=== PATIENT | male | born 1995 | race Caucasian/White ===

== ENCOUNTER 2019-02-22 12:27 | Emergency (ER) | payer OTHER, MEDICAID, SELFPAY ==
[2019-02-22 12:48] VITALS: BP 156/83; PULSE 119; RESP 20; TEMP 37.3; O2SAT 98
--- NOTE | 2019-02-22 12:53 | DI.RAD.S_ITS ---
PROCEDURE: XR HIP W PEL IF DONE RT 2V INDICATIONS: right hip pain. TECHNIQUE: 2 views of the hip were acquired. COMPARISON: None. FINDINGS: Bones: No displaced fracture or dislocation is identified involving the right hip. No suspicious osseous lesions are present. Imaged portions of the pelvis are grossly unremarkable. Soft tissues: No suspicious soft tissue calcifications or masses. A large amount of stool seen overlying the rectum. IMPRESSION: 1. No acute fracture of the right hip. 2. Prominent stool within the rectum may represent constipation. Dictated by: Johnathan Holman M.D. on 02/22/2019 at 13:00 Approved by: Johnathan Holman M.D. on 02/22/2019 at 13:00
[2019-02-22] MEDS: IBUPROFEN 400 MG TABLET 800 MG PO (15:13)
[2019-02-22 15:35] VITALS: BP 143/113; PULSE 122; RESP 18; O2SAT 94
[2019-02-22 15:47] VITALS: BP 149/77; PULSE 113; RESP 18; O2SAT 98
--- NOTE | 2019-02-22 18:11 | ED.FALL ---
HPI - Fall <FANTASMA Rivera-BC - Last Filed: 02/22/19 18:47> General Chief Complaint: Fall Stated Complaint: FALL/HIP AND UPPER LEG PAIN Time Seen by Provider: 02/22/19 15:00 Source: patient Mode of arrival: ambulatory Limitations: no limitations History of Present Illness HPI Narrative: The patient is a 23-year-old male nonsmoker with history of ADHD who presents with a chief complaint right hip pain. He states he accidentally rolled off of a bunk landing on his right hip last night. He is able to ambulate after. He tookone Tylenol for pain. He denies any head trauma, neck pain or back pain. He states that he is concerned that he has a hip fracture. He states he did not hit SI, did not lose consciousness, denies any abdominal pain, chest pain or difficulty breathing. Related Data Home Medications Medication Instructions Recorded Confirmed atomoxetine 20 mg PO DAILY 02/22/19 02/22/19 food supplemt, lactose-reduced 02/22/19 [Ensure] ibuprofen 600 mg PO TID 02/22/19 02/22/19 lisinopril 10 mg PO DAILY 02/22/19 02/22/19 potassium chloride 10 meq PO DAILY 02/22/19 02/22/19 primidone 50 mg PO DAILY 02/22/19 02/22/19 propranolol 02/22/19 sumatriptan succinate 50 mg PO PRN PRN 02/22/19 02/22/19 tizanidine 02/22/19 Allergies Allergy/AdvReac Type Severity Reaction Status Date / Time No Known Drug Allergies Allergy Verified 02/22/19 12:52 Review of Systems <JONATHAN Rivera - Last Filed: 02/22/19 18:47> Review of Systems GENERAL: Denies chills, fatigue, malaise, fever, sweats. HEENT: Denies sinus pain, ear pain, sore throat, difficulty swallowing, dizziness. RESPIRATORY: Denies dyspnea, cough, wheezing, hemoptysis, sputum. CARDIOVASCULAR: Denies chest pain, palpitations, orthopnea, edema, GASTROINTESTINAL: Denies nausea, vomiting, abdominal pain, diarrhea, constipation, melena. : Denies dysuria, frequency, incontinence, hematuria, urinary retention. MUSCULOSKELETAL: See HPI SKIN: Denies rash, skin lesions, or other NEUROLOGIC: Denies weakness, headache, numbness, change in speech, confusion, seizures, incoordination. PSYCHIATRIC: No concerning psychosocial issues. 12 point review of systems is negative except for those stated above Exam <DASIA RiveraBC - Last Filed: 02/22/19 18:47> Narrative Exam Narrative: GENERAL: This is a well-nourished, well-developed patient, no acute distress HEAD: Atraumatic. Normocephalic. No temporal or scalp tenderness. EYES: Pupils equal round and reactive. Extraocular motions intact. No scleral icterus. No injection or drainage. ENT: Nose without bleeding, purulent drainage or septal hematoma. Throat without erythema, tonsillar hypertrophy or exudate. Uvula midline. Airway patent. NECK: Trachea midline. No JVD or lymphadenopathy. Supple, nontender, no meningeal signs. CARDIOVASCULAR: Regular rate and rhythm without murmurs, gallops, or rubs. RESPIRATORY: Clear to auscultation. Breath sounds equal bilaterally. No wheezes, rales, or rhonchi. No cough. No increased respiratory effort. No accessory muscle use. GASTROINTESTINAL: Abdomen soft, non-tender, nondistended. No hepato-splenomegaly, or palpable masses. No guarding. Active bowel sounds all 4 quadrants. EXTREMITIES: No clubbing, cyanosis, or edema. No joint tenderness, effusion, or edema noted. BACK: Nontender without deformity or crepitance. No flank tenderness. No pain to CT or L-spine palpation. NEURO: AOx3. No gross cranial nerve deficit. Strength is equal upper and lower extremities bilaterally. SKIN: Rash erythema or ecchymosis noted right lower back Initial Vital Signs Initial Vital Signs: Vital Signs Temperature 99.1 F 02/22/19 12:48 Pulse Rate 119 H 02/22/19 12:48 Respiratory Rate 02/22/19 12:48 Blood Pressure 156/83 H 02/22/19 12:48 Pulse Oximetry 98 02/22/19 12:48 <Felicia Lyn MD - Last Filed: 02/22/19 19:56> Initial Vital Signs Initial Vital Signs: Vital Signs Temperature 99.1 F 02/22/19 12:48 Pulse Rate 119 H 02/22/19 12:48 Respiratory Rate 20 02/22/19 12:48 Blood Pressure 156/83 H 02/22/19 12:48 Pulse Oximetry 98 02/22/19 12:48 PFSH <JONATHAN Rivera - Last Filed: 02/22/19 18:47> Medical History (Updated 02/22/19 @ 18:45 by JONATHAN Rivera) ADHD (Acute) Social History Smoking Status: Never smoker Social History Smoking Status: Never smoker Scores <JONATHAN Rivera - Last Filed: 02/22/19 18:47> GCS Gays coma scale eye opening: Spontaneous Gays coma scale verbal response: Orientated Gays coma scale motor response: Obey commands Gays coma scale total score: 15 Nexus Score for C-Spine Focal Neurologic deficit present: No Midline spinal tenderness present: No Altered level of conciousness present: No Intoxication present: No Distracting Injury Present: No Nexus Criteria for C-spine: 0 Course <JONATHAN Rivera - Last Filed: 02/22/19 18:47> Orders Ordered: ED Orders 02/22/19 12:53 XR hip w pel if done RT 2V Stat Discontinued Medications Ibuprofen (Advil) 400 mg PO NOW ONE Stop: 02/22/19 14:56 Last Admin: 02/22/19 15:09 Dose: Not Given Ibuprofen (Advil) 800 mg PO NOW ONE Stop: 02/22/19 15:11 Last Admin: 02/22/19 15:13 Dose: 800 mg Vital Signs - 8 hr 02/22/19 12:48 02/22/19 15:35 02/22/19 15:47 Temperature 99.1 F Pulse Rate 119 H 122 H 113 H Respiratory Rate 20 18 18 Blood Pressure 156/83 H 149/77 H Blood Pressure [Left Arm] 143/113 H Pulse Oximetry 98 94 98 <Feliica Lyn MD - Last Filed: 02/22/19 19:56> Orders Ordered: ED Orders 02/22/19 12:53 XR hip w pel if done RT 2V Stat Discontinued Medications Ibuprofen (Advil) 400 mg PO NOW ONE Stop: 02/22/19 14:56 Last Admin: 02/22/19 15:09 Dose: Not Given Ibuprofen (Advil) 800 mg PO NOW ONE Stop: 02/22/19 15:11 Last Admin: 02/22/19 15:13 Dose: 800 mg Vital Signs - 8 hr 02/22/19 12:48 02/22/19 15:35 02/22/19 15:47 Temperature 99.1 F Pulse Rate 119 H 122 H 113 H Respiratory Rate 20 18 18 Blood Pressure 156/83 H 149/77 H Blood Pressure [Left Arm] 143/113 H Pulse Oximetry 98 94 98 MDM - Fall <ELYSSA RiveraP-BC - Last Filed: 02/22/19 18:47> Imaging Data Hip x-ray: Radiologist's impression: [address] [address] XRay Report Signed Patient: Gucci Meade#: [id number] : 1995Acct:[id number] Age/Sex: 23 / MDate of Service: 02/22/19 Loc: ED Accession Number: [id number] Procedure: XR hip w pel if done RT 2V Ordering Provider: Felicia Lyn MD PROCEDURE: XR HIP W PEL IF DONE RT 2V INDICATIONS: right hip pain. TECHNIQUE: 2 views of the hip were acquired. COMPARISON: None. FINDINGS: Bones: No displaced fracture or dislocation is identified involving the right hip. No suspicious osseous lesions are present. Imaged portions of the pelvis are grossly unremarkable. Soft tissues: No suspicious soft tissue calcifications or masses. A large amount of stool seen overlying the rectum. IMPRESSION: 1. No acute fracture of the right hip. 2. Prominent stool within the rectum may represent constipation. Dictated by: Johnathan Holman M.D. on 02/22/2019 at 13:00 Approved by: Johnathan Holman M.D. on 02/22/2019 at 13:00 [facility] Narrative Medical decision making narrative: The patient is a 23-year-old male who presents with chief complaint of right hip pain. Of note I had to redirect the patient from calling me ?baby? and honey throughout my attempted interview. He has a negative x-ray of hip contusion. He is GCS is 15. He has no complaints of back pain. He was happy to find he had a negative x-ray and stated he will plan continued ice and or heat with ibuprofen. Patient was given ibuprofen in the emergency department. Discussed coming back to the ER for any acute concerns or acute neurological deficit. No questions or concerns upon discharge. Patient states understanding of follow-up care as well as return precautions. Discharge Plan Departure Patient Disposition: Home Clinical Impression: Contusion of hip Qualifiers: Encounter type: initial encounter Laterality: right Qualified Code(s): S70.01XA - Contusion of right hip, initial encounter Discharge Date/Time: 02/22/19 15:46 Interventions: ED Discharge Assessment Last Done: 02/22/19 15:47 Instructions: DI for Contusion, How To Perform RICE (Rest, Ice, Compress, Elevate), How to Prevent Falls Activity Restrictions/Additional Instructions: Your x-rays show no fracture. Please use ibuprofen as well as rest Ice and or heat. Please follow up with primary care provider. Please come back to the emergency department for any acute concerns such as chest pain or shortness of breath. Prescriptions: No Action primidone 50 mg tablet 50 mg PO DAILY RF: 0 tizanidine 4 mg tablet RF: 0 sumatriptan succinate 50 mg tablet 50 mg PO PRN PRN (Reason: Migraine Headache) RF: 0 potassium chloride 10 mEq tablet extended release 10 meq PO DAILY RF: 0 propranolol 10 mg tablet RF: 0 lisinopril 10 mg tablet 10 mg PO DAILY RF: 0 ibuprofen 600 mg tablet 600 mg PO TID RF: 0 Ensure liquid RF: 0 atomoxetine 10 mg capsule 20 mg PO DAILY RF: 0 Referrals: Sima Carmona ARNP [Non-Staff] -
--- NOTE | 2019-02-22 18:16 | ED_ITS ---
HPI - Fall <FANTASMA Rivera-BC - Last Filed: 02/22/19 18:47> General Chief Complaint: Fall Stated Complaint: FALL/HIP AND UPPER LEG PAIN Time Seen by Provider: 02/22/19 15:00 Source: patient Mode of arrival: ambulatory Limitations: no limitations History of Present Illness HPI Narrative: The patient is a 23-year-old male nonsmoker with history of ADHD who presents with a chief complaint right hip pain. He states he accidentally rolled off of a bunk landing on his right hip last night. He is able to ambulate after. He tookone Tylenol for pain. He denies any head trauma, neck pain or back pain. He states that he is concerned that he has a hip fracture. He states he did not hit SI, did not lose consciousness, denies any abdominal pain, chest pain or difficulty breathing. Related Data Home Medications Medication Instructions Recorded Confirmed atomoxetine 20 mg PO DAILY 02/22/19 02/22/19 food supplemt, lactose-reduced 02/22/19 [Ensure] ibuprofen 600 mg PO TID 02/22/19 02/22/19 lisinopril 10 mg PO DAILY 02/22/19 02/22/19 potassium chloride 10 meq PO DAILY 02/22/19 02/22/19 primidone 50 mg PO DAILY 02/22/19 02/22/19 propranolol 02/22/19 sumatriptan succinate 50 mg PO PRN PRN 02/22/19 02/22/19 tizanidine 02/22/19 Allergies Allergy/AdvReac Type Severity Reaction Status Date / Time No Known Drug Allergies Allergy Verified 02/22/19 12:52 Review of Systems <JONATHAN Rivera - Last Filed: 02/22/19 18:47> Review of Systems GENERAL: Denies chills, fatigue, malaise, fever, sweats. HEENT: Denies sinus pain, ear pain, sore throat, difficulty swallowing, dizziness. RESPIRATORY: Denies dyspnea, cough, wheezing, hemoptysis, sputum. CARDIOVASCULAR: Denies chest pain, palpitations, orthopnea, edema, GASTROINTESTINAL: Denies nausea, vomiting, abdominal pain, diarrhea, constipation, melena. : Denies dysuria, frequency, incontinence, hematuria, urinary retention. MUSCULOSKELETAL: See HPI SKIN: Denies rash, skin lesions, or other NEUROLOGIC: Denies weakness, headache, numbness, change in speech, confusion, seizures, incoordination. PSYCHIATRIC: No concerning psychosocial issues. 12 point review of systems is negative except for those stated above Exam <DASIA RiveraBC - Last Filed: 02/22/19 18:47> Narrative Exam Narrative: GENERAL: This is a well-nourished, well-developed patient, no acute distress HEAD: Atraumatic. Normocephalic. No temporal or scalp tenderness. EYES: Pupils equal round and reactive. Extraocular motions intact. No scleral icterus. No injection or drainage. ENT: Nose without bleeding, purulent drainage or septal hematoma. Throat without erythema, tonsillar hypertrophy or exudate. Uvula midline. Airway patent. NECK: Trachea midline. No JVD or lymphadenopathy. Supple, nontender, no meningeal signs. CARDIOVASCULAR: Regular rate and rhythm without murmurs, gallops, or rubs. RESPIRATORY: Clear to auscultation. Breath sounds equal bilaterally. No wheezes, rales, or rhonchi. No cough. No increased respiratory effort. No accessory muscle use. GASTROINTESTINAL: Abdomen soft, non-tender, nondistended. No hepato- splenomegaly, or palpable masses. No guarding. Active bowel sounds all 4 quadrants. EXTREMITIES: No clubbing, cyanosis, or edema. No joint tenderness, effusion, or edema noted. BACK: Nontender without deformity or crepitance. No flank tenderness. No pain to CT or L-spine palpation. NEURO: AOx3. No gross cranial nerve deficit. Strength is equal upper and lower extremities bilaterally. SKIN: Rash erythema or ecchymosis noted right lower back Initial Vital Signs Initial Vital Signs: Vital Signs Temperature 99.1 F 02/22/19 12:48 Pulse Rate 119 H 02/22/19 12:48 Respiratory Rate 02/22/19 12:48 Blood Pressure 156/83 H 02/22/19 12:48 Pulse Oximetry 98 02/22/19 12:48 <Felicia Lyn MD - Last Filed: 02/22/19 19:56> Initial Vital Signs Initial Vital Signs: Vital Signs Temperature 99.1 F 02/22/19 12:48 Pulse Rate 119 H 02/22/19 12:48 Respiratory Rate 20 02/22/19 12:48 Blood Pressure 156/83 H 02/22/19 12:48 Pulse Oximetry 98 02/22/19 12:48 PFSH <JONATHAN Rivera - Last Filed: 02/22/19 18:47> Medical History (Updated 02/22/19 @ 18:45 by JONATHAN Rivera) ADHD (Acute) Social History Smoking Status: Never smoker Social History Smoking Status: Never smoker Scores <JONATHAN Rivera - Last Filed: 02/22/19 18:47> GCS Uriel coma scale eye opening: Spontaneous [place] coma scale verbal response: Orientated Uriel coma scale motor response: Obey commands Uriel coma scale total score: 15 Nexus Score for C-Spine Focal Neurologic deficit present: No Midline spinal tenderness present: No Altered level of conciousness present: No Intoxication present: No Distracting Injury Present: No Nexus Criteria for C-spine: 0 Course <JONATHAN Rivera - Last Filed: 02/22/19 18:47> Orders Ordered: ED Orders 02/22/19 12:53 XR hip w pel if done RT 2V Stat Discontinued Medications Ibuprofen (Advil) 400 mg PO NOW ONE Stop: 02/22/19 14:56 Last Admin: 02/22/19 15:09 Dose: Not Given Ibuprofen (Advil) 800 mg PO NOW ONE Stop: 02/22/19 15:11 Last Admin: 02/22/19 15:13 Dose: 800 mg Vital Signs - 8 hr 02/22/19 12:48 02/22/19 15:35 02/22/19 15:47 Temperature 99.1 F Pulse Rate 119 H 122 H 113 H Respiratory Rate 20 18 18 Blood Pressure 156/83 H 149/77 H Blood Pressure [Left Arm] 143/113 H Pulse Oximetry 98 94 98 <Felicia Lyn MD - Last Filed: 02/22/19 19:56> Orders Ordered: ED Orders 02/22/19 12:53 XR hip w pel if done RT 2V Stat Discontinued Medications Ibuprofen (Advil) 400 mg PO NOW ONE Stop: 02/22/19 14:56 Last Admin: 02/22/19 15:09 Dose: Not Given Ibuprofen (Advil) 800 mg PO NOW ONE Stop: 02/22/19 15:11 Last Admin: 02/22/19 15:13 Dose: 800 mg Vital Signs - 8 hr 02/22/19 12:48 02/22/19 15:35 02/22/19 15:47 Temperature 99.1 F Pulse Rate 119 H 122 H 113 H Respiratory Rate 20 18 18 Blood Pressure 156/83 H 149/77 H Blood Pressure [Left Arm] 143/113 H Pulse Oximetry 98 94 98 MDM - Fall <ELYSSA RiveraP-BC - Last Filed: 02/22/19 18:47> Imaging Data Hip x-ray: Radiologist's impression: [address] [address] XRay Report Signed Patient: Gucci Meade#: [id number] : 1995Acct:[id number] Age/Sex: 23 / MDate of Service: 02/22/19 Loc: ED Accession Number: [id number] Procedure: XR hip w pel if done RT 2V Ordering Provider: Felicia Lyn MD PROCEDURE: XR HIP W PEL IF DONE RT 2V INDICATIONS: right hip pain. TECHNIQUE: 2 views of the hip were acquired. COMPARISON: None. FINDINGS: Bones: No displaced fracture or dislocation is identified involving the right hip. No suspicious osseous lesions are present. Imaged portions of the pelvis are grossly unremarkable. Soft tissues: No suspicious soft tissue calcifications or masses. A large amount of stool seen overlying the rectum. IMPRESSION: 1. No acute fracture of the right hip. 2. Prominent stool within the rectum may represent constipation. Dictated by: Johnathan Holman M.D. on 02/22/2019 at 13:00 Approved by: Johnathan Holman M.D. on 02/22/2019 at 13:00 [facility] Narrative Medical decision making narrative: The patient is a 23-year-old male who presents with chief complaint of right hip pain. Of note I had to redirect the patient from calling me ?baby? and honey throughout my attempted interview. He has a negative x-ray of hip contusion. He is GCS is 15. He has no complaints of back pain. He was happy to find he had a negative x-ray and stated he will plan continued ice and or heat with ibuprofen. Patient was given ibuprofen in the emergency department. Discussed coming back to the ER for any acute concerns or acute neurological deficit. No questions or concerns upon discharge. Patient states understanding of follow-up care as well as return precautions. Discharge Plan Departure Patient Disposition: Home Clinical Impression: Contusion of hip Qualifiers: Encounter type: initial encounter Laterality: right Qualified Code(s): S70.01XA - Contusion of right hip, initial encounter Discharge Date/Time: 02/22/19 15:46 Interventions: ED Discharge Assessment Last Done: 02/22/19 15:47 Instructions: DI for Contusion, How To Perform RICE (Rest, Ice, Compress, Elevate), How to Prevent Falls Activity Restrictions/Additional Instructions: Your x-rays show no fracture. Please use ibuprofen as well as rest Ice and or heat. Please follow up with primary care provider. Please come back to the emergency department for any acute concerns such as chest pain or shortness of breath. Prescriptions: No Action primidone 50 mg tablet 50 mg PO DAILY RF: 0 tizanidine 4 mg tablet RF: 0 sumatriptan succinate 50 mg tablet 50 mg PO PRN PRN (Reason: Migraine Headache) RF: 0 potassium chloride 10 mEq tablet extended release 10 meq PO DAILY RF: 0 propranolol 10 mg tablet RF: 0 lisinopril 10 mg tablet 10 mg PO DAILY RF: 0 ibuprofen 600 mg tablet 600 mg PO TID RF: 0 Ensure liquid RF: 0 atomoxetine 10 mg capsule 20 mg PO DAILY RF: 0 Referrals: iSma Carmona ARNP [Non-Staff] -
== END 2019-02-22 15:46 | disposition home or self-care (01) ==
PROVIDERS: Emergency Provider Nurse Practitioner Family
DX: S70.01XA Contusion of right hip, initial encounter (principal); W06.XXXA Fall from bed, initial encounter
CPT/HCPCS: 73502; 99282; 99283